=== PATIENT | female | born 1975 | race Caucasian/White ===

== ENCOUNTER 2018-02-11 14:48 | Emergency (ER) ==
[2018-02-11 14:57] VITALS: BP 109/75; TEMP 98.4; BMI 20.7
--- NOTE | 2018-02-11 15:05 | ED.PDOC ---
General ED Provider: Dr. WILLIAN REED MD Chief Complaint: Abdominal Pain Stated Complaint: abdominal pain,. history of kidney stone Time Seen by Physician: 15:15 Mode of Arrival: Walk-In Information Source: Patient Exam Limitations: No limitations Nursing and Triage Documentation Reviewed and Agree: Yes Reviewed sepsis parameters & appropriate labs ordered?: No System Inflammatory Response Syndrome: Not Applicable Sepsis Protocol: For patient's 13 years and over: Temp is 96.8 and below OR 101 and greater Pulse >90 BPM Resp >20/minute Acutely Altered Mental Status Are patient's symptoms suggestive of a new infection, such as: -Pneumonia -Skin, Soft Tissue -Endocarditis -UTI -Bone, Joint Infection -Implantable Device -Acute Abdominal Infection -Wound Infection -Meningitis -Blood Stream Catheter Infection -Unknown GI Complaint Exam - Abdominal Pain Complaint/Exam Symptoms Are: Still present Timing: Intermittent Initial Severity: Moderate Current Severity: Mild Location of Pain: LLQ Radiates To: Reports: Flank Character: Reports: Aching Aggravating: Reports: None Associated Signs and Symptoms: Reports: Dysuria Related History: Reports: Similar episode Related Surgical History: Reports: Kidney Stones Differential Diagnoses: Bowel Obstruction, Constipation, Diverticulitis, Ureteral Stone Review of Systems - Review Of Systems Constitutional: Reports: Other (vomiting) Eyes: Reports: No symptoms Ears, Nose, Mouth, Throat: Reports: No symptoms Respiratory: Reports: No symptoms Cardiac: Reports: No symptoms GI: Reports: Abdominal pain : Reports: Flank pain Musculoskeletal: Reports: No symptoms Skin: Reports: No symptoms Neurological: Reports: No symptoms Endocrine: Reports: No symptoms Hematologic/Lymphatic: Reports: No symptoms All Other Systems: Reviewed and Negative Past Medical History - Past Medical History Previously Healthy: Yes Endocrine: Reports: None Cardiovascular: Reports: None Respiratory: Reports: None Hematological: Reports: None Gastrointestinal: Reports: None Genitourinary: Reports: UTI, Kidney stones Neuro/Psych: Reports: None Musculoskeletal: Reports: None, Back Pain Cancer: Reports: None Last Menstrual Period: 3 months ago - Surgical History General Surgical History: Reports: None - Family History Family History: Reports: None - Social History Smoking Status: Current every day smoker Hx Substance Use: Yes (marijuana) Alcohol Screening: None Physical Exam - Physical Exam Appearance: Ill-appearing Ill-appearing: Mild Pain Distress: Moderate Eyes: CLAIRE, EOMI, Conjunctiva clear ENT: Ears normal, Nose normal, Oropharynx normal Respiratory: Airway patent, Breath sounds clear, Breath sounds equal, Respirations nonlabored Cardiovascular: RRR, Pulses normal, No rub, No murmur GI/: Tender Musculoskeletal: Normal strength, ROM intact, No edema, No calf tenderness Skin: Warm, Dry, Normal color Neurological: Sensation intact, Motor intact, Reflexes intact, Cranial nerves intact, Alert, Oriented Psychiatric: Anxious Interpretation - Radiology Interpretation Radiology Interpretation By: Radiologist Xray Comments: b/l stones in kidney non-obstructive Critical Care Note - Critical Care Note Total Time (mins): 0 Course - Course Orders, Labs, Meds: Lab Review 02/11/18 15:00 Urine Color Yellow Urine Clarity Cloudy Urine pH 7.0 Ur Specific Stone >=1.030 Urine Protein 1+ Urine Glucose (UA) Negative Urine Ketones Negative Urine Blood 2+ Urine Nitrite Negative Urine Bilirubin Negative Urine Urobilinogen 0.2 Ur Leukocyte Esterase 1+ Urine Microscopic RBC 5-10 Urine Microscopic WBC 50-100 Ur Squamous Epith Cells 10-20 Urine Bacteria 1+ Orders Category Date Time Status IV ACCESS ONCE CARE 02/11/18 15:06 Active UA [URINALYSIS C & S IF INDICATED] Stat LAB 02/11/18 15:00 Completed URINE CULTURE Routine LAB 02/11/18 15:00 Received Ceftriaxone Sodium [Rocephin] MEDS 02/11/18 16:00 Discontinued 1 gm .ROUTE .STK-MED ONE Ceftriaxone Sodium [Rocephin] 1 gm MEDS 02/11/18 15:55 Discontinued 0.9 % Sodium Chloride [Sodium Chloride] 50 ml IV ONCE Methylprednisolone Sod Succ/Pf [Solu-Medrol 125 mg] MEDS 02/11/18 16:58 Discontinued 80 mg IVP ONCE STA Promethazine HCl [Phenergan 25 mg/ml Vial] MEDS 02/11/18 15:15 Discontinued 25 mg .ROUTE .STK-MED ONE Promethazine HCl [Phenergan 25 mg/ml Vial] 25 mg MEDS 02/11/18 15:07 Discontinued 0.9 % Sodium Chloride [Sodium Chloride] 50 ml IV ONCE Sodium Chloride 0.9% [Sodium Chloride] 1,000 ml MEDS 02/11/18 15:[address] ABDOMEN/PELVIS WO CONTRAST Stat RADS 02/11/18 15:05 Completed Medications Discontinued Medications Generic Name Dose Route Start Last Admin Trade Name Freq PRN Reason Stop Dose Admin Promethazine HCl 25 mg/ Sodium 51 mls @ 75 mls/hr 02/11/18 15:07 02/11/18 15: 48 Chloride IV 02/11/18 15:47 75 mls/hr ONCE STA Administration Sodium Chloride 1,000 mls @ 1,000 mls/hr 02/11/18 15:07 02/11/18 15:48 Sodium Chloride IV 02/11/18 16:06 1,000 mls/hr BOLUS STA Administration Ceftriaxone Sodium 1 gm/ 50 mls @ 75 mls/hr 02/11/18 15:55 02/11/18 16:29 Sodium Chloride IV 02/11/18 16:34 75 mls/hr ONCE STA Administration Methylprednisolone Sodium Succinate 80 mg 02/11/18 16:58 02/11/18 17:13 Solu-Medrol 125 Mg IVP 02/11/18 16:59 80 mg ONCE STA Administration Vital Signs: Temp Pulse Resp BP Pulse Ox 02/11/18 14:50 98.4 F 94 H 16 109/75 98 Departure - Departure Time of Disposition: 17:45 Disposition: HOME SELF-CARE Discharge Problem: Abdominal pain, Kidney stones, UTI (urinary tract infection) Condition: Good Pt referred to PMD for follow-up: Yes IPMP verified?: No (pt requesting Fentenyl or morphine, i didn't have a medical indication for ) Allergies/Adverse Reactions: Allergies amitriptyline Adverse Reaction (Verified 02/11/18 14:54) aspirin Adverse Reaction (Verified 02/11/18 14:54) butorphanol [From Stadol] Adverse Reaction (Verified 02/11/18 14:54) ketorolac [From Toradol] Adverse Reaction (Verified 02/11/18 14:54) metoclopramide [From Reglan] Adverse Reaction (Verified 02/11/18 14:54) nalbuphine [From Nubain] Adverse Reaction (Verified 02/11/18 14:54) Sulfa (Sulfonamide Antibiotics) Adverse Reaction (Verified 02/11/18 14:54) tramadol Adverse Reaction (Verified 02/11/18 14:54) Home Medications: Ambulatory Orders 1 [No Reported Medications] 02/11/18
[2018-02-11] MEDS: SODIUM CHLORIDE 1,000 ML IV STA (15:48)
[2018-02-11] MEDS: PHENERGAN 25 MG/ML VIAL 25 MG in SODIUM CHLORIDE 50 ML IV STA (15:48)
[2018-02-11] MEDS: PHENERGAN 25 MG/ML VIAL ONE (15:48)
--- NOTE | 2018-02-11 15:48 | CT ---
EXAM: CT Abdomen without contrast. CT Pelvis without contrast. HISTORY: Left flank pain, nausea and vomiting. COMPARISON: None available. TECHNIQUE: Multiple axial images of the abdomen and pelvis were obtained without intravenous contras t. Images were reformatted in the sagittal and coronal plane. FINDINGS: Please note that evaluation of the abdominal and pelvic structures is limited due to lack of intravenous contrast. The lung bases are clear. Degenerative changes are present in the spine, severe at L5-S1. Question bone graft site in the posterior right iliac bone. The liver, gallbladder, spleen, adrenal glands and straight normal contour. Question 2.1 x 1 cm low density lesion in the tail of pancreas on axial image 42. There is a punctate calculus in each kidne y. No hydronephrosis or perinephric inflammation identified. No ureteral or bladder calculi are see n. The bladder is collapsed. Uterus demonstrates normal contour. Cystic lesions present in both ad nexal regions measuring up to 4.9 cm on the right and 3 cm on the left. The bowel is normal in course and caliber without evidence for obstruction or inflammatory process. The appendix is not seen. Small amount of free pelvic fluid noted. No free air identified. IMPRESSION: 1. Punctate bilateral nephrolithiasis without obstructive uropathy. 2. Bilateral adnexal cyst. Consider follow-up pelvic ultrasound. 3. Indeterminate low density pancreatic tail lesion. Abdominal MRI is recommended for further evalu ation.
[2018-02-11] MEDS: ROCEPHIN ONE (16:28)
[2018-02-11] MEDS: ROCEPHIN 1 GM in SODIUM CHLORIDE 50 ML IV STA (16:29)
[2018-02-11] MEDS: SOLU-MEDROL 125 MG IVP STA (17:13)
== END 2018-02-11 18:08 | disposition home or self-care (01) ==
LOC: ED 14:48
DX: N39.0 Urinary tract infection, site not specified (principal); N20.0 Calculus of kidney; Z87.442 Personal history of urinary calculi; F17.210 Nicotine dependence, cigarettes, uncomplicated
CPT/HCPCS: 81001; 87086; 96365; 96367; 96375; 99283